=== PATIENT | female | born 1935 | race American Indian/Alaskan Native ===

== ENCOUNTER 2017-09-12 14:24 | Emergency (ER) | payer OTHER ==
[~2017-09-12] VITALS: Ht 157.5 cm; Wt 81.6 kg
== END 2017-09-13 01:09 | disposition designated cancer center or children's hospital (05) ==
LOC: ER 14:24
DX: I62.00 Nontraumatic subdural hemorrhage, unspecified (principal); G93.5 Compression of brain; E87.6 Hypokalemia